=== PATIENT | female | born 2000 | race Caucasian/White ===

== ENCOUNTER 2022-02-08 10:46 | Day surgery (SDC) | payer OTHER ==
[2022-02-06 09:38] VITALS: BMI 37.8
[2022-02-08] MEDS ORDERED: fentaNYL Citrate/PF 100 MCG/2 ML SYRINGE ONE (12:14)
[2022-02-08] MEDS ORDERED: Ciprofloxacin 0.2% Otic (0.25ML CONTAINER) ONE (12:18)
[2022-02-08] MEDS ORDERED: Lidocaine 1% w/Epinephrine 1:100K 30 ML VIAL ONE (12:18)
[2022-02-08] MEDS ORDERED: Bacitracin Zinc Ointment 30 gm TUBE ONE (12:18)
[2022-02-08] MEDS ORDERED: EPINEPHrine 1 MG/ML AMP ONE (12:18)
[2022-02-08] MEDS ORDERED: Dexmedetomidine 200 MCG/2 ML VIAL ONE (13:31)
[2022-02-08] MEDS ORDERED: ePHEDrine 50 MG/ML VIAL ONE (13:40)
[2022-02-08] MEDS ORDERED: Lidocaine 1% PF 5 ML VIAL ONE (13:40)
[2022-02-08] MEDS ORDERED: PROPOFOL 200 MG/20 ML VIAL ONE (13:40)
[2022-02-08] MEDS ORDERED: Ondansetron PF 4 MG/2 ML Vial ONE (13:40)
[2022-02-08] MEDS ORDERED: PHENYLEPHRINE-NS 100 MCG/ML 10 ML SYRINGE ONE (13:40)
[2022-02-08] MEDS ORDERED: Dexamethasone 20 MG/5 ML VIAL ONE (13:40)
== END 2022-02-08 15:50 | disposition home or self-care (01) ==
LOC: SDC 10:46
PROVIDERS: ATTEND Specialist
PROC: 099680Z Drainage of Left Middle Ear with Drainage Device, Via Natural or Artificial Opening Endoscopic (ICD-10-PCS; principal; 2022-02-08)
PROC: 099580Z Drainage of Right Middle Ear with Drainage Device, Via Natural or Artificial Opening Endoscopic (ICD-10-PCS; principal; 2022-02-08)
DX: H69.83 Other specified disorders of Eustachian tube, bilateral (principal); H90.2 Conductive hearing loss, unspecified; H71.90 Unspecified cholesteatoma, unspecified ear; H65.23 Chronic serous otitis media, bilateral; H92.13 Otorrhea, bilateral; H92.03 Otalgia, bilateral; G47.30 Sleep apnea, unspecified; K21.9 Gastro-esophageal reflux disease without esophagitis; E03.9 Hypothyroidism, unspecified; Q90.9 Down syndrome, unspecified; E66.9 Obesity, unspecified; Z68.37 Body mass index [BMI] 37.0-37.9, adult; Z87.74 Personal history of (corrected) congenital malformations of heart and circulatory system; Z79.890 Hormone replacement therapy
CPT/HCPCS: 85014; J0171; J1100; J2405; J2704; J3490; L8613